=== PATIENT | female | born 2000 ===

== ENCOUNTER 2020-01-06 03:28 | Inpatient (IN) ==
[2020-01-06] MEDS: LACTATED RINGERS 1,000 ML IV ONE ×2 (03:30→05:03)
[2020-01-06] MEDS ORDERED: ONDANSETRON 4 MG/2 ML VIAL IV PRN ×2 (03:36→09:04)
[2020-01-06] MEDS ORDERED: BUTORPHANOL 2 MG/ML VIAL IV PRN (03:36)
[2020-01-06] MEDS ORDERED: AMPICILLIN INJ 2,000 MG in SODIUM CHLORIDE 0.9% 100 ML IV ONE (03:37)
[2020-01-06] MEDS ORDERED: FAMOTIDINE 20 MG/2 ML VIAL IV ONE (03:38)
[2020-01-06] MEDS ORDERED: CITRIC ACID/SODIUM CITRATE 30 ML UDCUP PO ONE (03:38)
[2020-01-06] MEDS ORDERED: NALOXONE 0.4 MG/ML VIAL IV PRN (03:38)
[2020-01-06] MEDS ORDERED: ePHEDrine 50 MG/ML VIAL IV PRN (03:38)
[2020-01-06] MEDS ORDERED: TRANEXAMIC ACID 1,000 MG/10 ML VIAL ONE (03:54)
[2020-01-06] MEDS ORDERED: miSOPROStoL 200 MCG TABLET ONE (03:54)
[2020-01-06] MEDS ORDERED: OXYTOCIN/LR 20 UNIT/1,000 ML BAG IV ONE ×3 (03:54→12:15)
[2020-01-06] MEDS ORDERED: LIDOCAINE 1% 50 ML VIAL ONE (03:55)
[2020-01-06] MEDS ORDERED: METHYLERGONOVINE 0.2 MG/1 ML AMP ONE (03:55)
[2020-01-06] MEDS ORDERED: MEPERIDINE 50 MG/1 ML VIAL ONE (03:55)
[2020-01-06] MEDS ORDERED: SODIUM CHLORIDE 0.9% 0 ML IV ONE (03:55)
[2020-01-06] MEDS ORDERED: CARBOPROST TROMETHAMINE 250 MCG/ML AMP IM ONE (03:55)
[2020-01-06 03:56] LABS: Basophils % 0.2 % (0.0-0.8); Eosinophils % 0.1 % (0.00-10.9); Hemoglobin 12.2 GM/DL (12.0-16.0); Immature Granulocytes % 0.6 %; Immature Granulocytes Absolute 0.09 #; Lymphocytes % 6.8 % (21.3-54.2); Mean Corpuscular Volume 82.2 FL (87-102); Mean Platelet Volume 12.3 FL (9.6-12.0); Monocytes % 3.1 % (1.7-12.7); Neutrophils % 89.2 % (38.7-73.9); Platelet Count 207 T/CUMM (130-400); Red Cell Distribution Width 15.4 % (9.3-17.3); White Blood Count 14.3 T/CUMM (4-12)
[2020-01-06] MEDS ORDERED: LACTATED RINGERS 1,000 ML IV SCH (04:00)
[2020-01-06] MEDS ORDERED: fentaNYL 2 MCG/ROPIV 0.2% EPID 100 ML EPIDURAL SCH (04:00)
[2020-01-06 04:17] LABS: Alanine Aminotransferase < 9 U/L (13-56); Albumin 2.6 G/DL (3.4-5.0); Alkaline Phosphatase 167 U/L (45-117); Aspartate Amino Transferase 11 U/L (0-37); Bilirubin,Total < 0.39 MG/DL (0.2-1.0); Blood Urea Nitrogen 9 MG/DL (7-18); Calcium 8.9 MG/DL (8.5-10.1); Estimated Glom Filtration Rate 169 ML/MIN; Glucose 98 MG/DL (74-106); Osmolality,Calculated 273.7 MOS/KG (273-304); Total Protein 6.9 G/DL (6.4-8.3)
[2020-01-06 05:15] LABS: Bilirubin,Urine Negative (Negative); Blood, Urine Negative (Negative); Glucose,Urine (UA) Negative (Negative); Hyaline Casts,Urine 2 /LPF (0-3); Ketones,Urine 80 mg/dL (Negative); Mucus,Urine Many /LPF (Occasional); Nitrite,Urine Negative (Negative); Protein,Urine 30 MG/DL; RBC,Urine 1 /HPF (0-4); Squamous Epithelial Cell,Urine Occasional /HPF (0-10); Urine Appearance CLEAR (Clear); Urine Color Yellow (Yellow); Urine Specific Gravity 1.023 (1.001-1.035); Urine Urobilinogen < 2.0 EU/DL (0.2-1.0); WBC,Urine 1 /HPF (0-6)
[2020-01-06] MEDS ORDERED: AMPICILLIN INJ 1,000 MG in SODIUM CHLORIDE 0.9% 100 ML IV ONE (07:55)
[2020-01-06] MEDS ORDERED: SODIUM CHLORIDE 0.9% 100 ML IV ONE (07:59)
[2020-01-06] MEDS ORDERED: AMPICILLIN 1,000 MG VIAL ONE (07:59)
[2020-01-06] MEDS ORDERED: WITCH HAZEL PADS 100/JAR TOP PRN (09:04)
[2020-01-06] MEDS ORDERED: oxyCODONE/ACETAMINOPHEN 5-325 MG TABLET PO PRN ×2 (09:04)
[2020-01-06] MEDS ORDERED: BENZOCAINE 20%/MENTHOL 0.5% SPRAY 56 GM CAN TOP PRN (09:04)
[2020-01-06] MEDS ORDERED: DIPH/TET/ACEL PERT BOOSTER VACCINE 0.5 ML VIAL IM ONE (09:04)
[2020-01-06] MEDS ORDERED: MEASLES/MUMPS/RUBELLA VACCINE 0.5 ML VIAL SUBCUT ONE (09:04)
[2020-01-06] MEDS ORDERED: ACETAMINOPHEN 325 MG TABLET PO PRN (09:04)
[2020-01-06] MEDS ORDERED: IBUPROFEN 800 MG TABLET PO PRN (09:04)
[2020-01-06] MEDS ORDERED: BISACODYL 10 MG SUPP RECTAL PRN (09:04)
[2020-01-06] MEDS ORDERED: LANOLIN 50% CREAM 0.3 OZ TUBE TOP PRN (09:04)
[2020-01-06] MEDS ORDERED: RHO(D) IMMUNE GLOBULIN 300 MCG SYRINGE IM ONE (09:04)
[2020-01-06] MEDS ORDERED: HYDROCORTISONE 2.5% RECTAL CREAM 30 GM TUBE TOP PRN (09:04)
[2020-01-06 09:30] LABS: Cord Venous Blood HCO3 21.2 MMOL/L; Cord Venous Blood PCO2 40.8 MMHG; Cord Venous Blood PO2 30.9
[2020-01-06] MEDS: DOCUSATE SODIUM 100 MG CAPSULE PO SCH (21:27)
[2020-01-07 05:47] LABS: Basophils % 0.3 % (0.0-0.8); Eosinophils # 0.1 10*3/uL (0.0-0.87); Eosinophils % 0.6 % (0.00-10.9); Hematocrit 30.8 VOL% (35.7-47.0); Immature Granulocytes % 0.4 %; Immature Granulocytes Absolute 0.04 #; Lymphocytes # 1.8 10*3/uL (1.4-4.0); Lymphocytes % 17.3 % (21.3-54.2); Mean Corpuscular HGB Conc 32.1 GM/DL (32-36); Mean Platelet Volume 12.8 FL (9.6-12.0); Monocytes % 6.6 % (1.7-12.7); Neutrophils % 74.8 % (38.7-73.9); Red Blood Count 3.71 MC/CUMM (3.8-5.5); Red Cell Distribution Width 15.5 % (9.3-17.3); White Blood Count 10.6 T/CUMM (4-12)
[2020-01-07 05:50] LABS: Hemoglobin 9.9 GM/DL (12.0-16.0); Platelet Count 144 T/CUMM (130-400)
[2020-01-07] MEDS: DOCUSATE SODIUM 100 MG CAPSULE PO SCH ×2 (08:49→21:02)
[2020-01-08 07:41] VITALS: BP 144/74
[2020-01-08] MEDS: DOCUSATE SODIUM 100 MG CAPSULE PO SCH (09:00)
== END 2020-01-08 12:20 | disposition home or self-care (01) | DRG 560 ==
LOC: N.LDOUT 03:28 → N.LD 03:33 → N.OB 12:25
PROVIDERS: ADMIT Obstetrics & Gynecology; ATTEND Obstetrics & Gynecology